=== PATIENT | male | born 1990 | race Caucasian/White ===

== ENCOUNTER 2025-04-22 10:20 | Day surgery (SDC) | payer OTHER, SELFPAY ==
[2025-04-22] VITALS (12 sets, daily range): BP systolic 107–129; BP diastolic 76–99; PULSE 61–80; RESP 12–20; TEMP 36.3–36.7; O2SAT 97–100; BMI 23.5
[2025-04-22] MEDS: MIDAZOLAM INJ 1 MG/ML VIAL 2 ML (ASD USE ONLY) 2 MG IVP (12:29)
[2025-04-22] MEDS: SODIUM CHLORIDE 0.9% 500 ML 500 ML 20 ML IV (12:29)
[2025-04-22] MEDS: fentaNYL CIT INJ 50 mCg/ML AMP 2ML (ASD USE ONLY) IVP (12:30)
[2025-04-22] MEDS: BENZOCAINE 20% (Hurricaine) SPRAY 1 DOSE TOP (12:31)
--- NOTE | 2025-04-22 13:45 | SUR.PHASEII ---
1315 Pt more awake and alert. Denies pain, N/V or difficulty swallowing. Abd remains soft. Pt lorena po fluids. 1332 Pt assessment unchanged. No complaints. Amb with steady gait. Able to dress self. Pt and given dc instructions. Both start understanding. Pt meets dc criteria-to home.
== END 2025-04-22 13:32 | disposition home or self-care (01) ==
PROVIDERS: PCP Family Medicine; Referring Provider Specialist; Visit Provider Specialist
PROC: 0DBE8ZX Excision of Large Intestine, Via Natural or Artificial Opening Endoscopic, Diagnostic (ICD-10-PCS; CPT 45380; principal; 2025-04-22 11:00)
PROC: (CPT 43239; 2025-04-22 11:00)
DX: K52.9 Noninfective gastroenteritis and colitis, unspecified (principal); K63.89 Other specified diseases of intestine; K62.89 Other specified diseases of anus and rectum; K64.9 Unspecified hemorrhoids; B96.81 Helicobacter pylori [H. pylori] as the cause of diseases classified elsewhere; K31.89 Other diseases of stomach and duodenum; K20.91 Esophagitis, unspecified with bleeding
CPT/HCPCS: 45380; J1200; J2250; J3010; J7999; A9270